=== PATIENT | female | born 1980 | race Caucasian/White ===

== ENCOUNTER 2019-10-21 20:10 | Emergency (ER) | payer SELFPAY ==
--- NOTE | 2019-10-21 20:55 | ED Physician Documentation ---
PD HPI ABD PAIN - Stated complaint Stated Complaint: ABD PX/VOM - Chief complaint Chief Complaint: Abd Pain - History obtained from History obtained from: Patient - History of Present Illness Timing - onset: Enter time (22:30), Last night Timing - details: Gradual onset Pain level now: 7 Quality: Sharp, Pain Location: RLQ Radiation: Other (none) Improved by: Laying still Worsened by: Moving, Palpation, Other (vomiting) Associated symptoms: Nausea, Vomiting. No: Fever, Diarrhea, Constipation Recently seen: Not recently seen - Additional information Additional information: c/o nausea, vomiting, and RLQ abdominal pain since last night, gradually worsening pain. Some similarity to symptoms previously attributed to her PCOS, but this is more persistent, sharp, and severe. Review of Systems Constitutional: denies: Fever, Chills, Sweats Cardiac: reports: Reviewed and negative Respiratory: reports: Reviewed and negative GI: reports: Abdominal Pain, Nausea, Vomiting. denies: Constipation, Diarrhea : denies: Dysuria, Frequency, Hematuria Musculoskeletal: reports: Reviewed and negative Neurologic: reports: Reviewed and negative PD PAST MEDICAL HISTORY - Past Medical History Past Medical History: Yes [employer]: Other (PCOS) - Present Medications Home Medications: Ambulatory Orders Medication Instructions Recorded Confirmed Metformin HCl 500 mg PO BID 10/21/19 10/21/19 Ondansetron Odt [Zofran] 4 mg TL Q6H PRN #10 tablet 10/21/19 - Allergies Allergies/Adverse Reactions: Allergies Allergy/AdvReac Type Severity Reaction Status Date / Time Iodinated Contrast Media Allergy Itching Verified 10/21/19 22:45 NSAIDS (Non-Steroidal Allergy Anaphylaxis Verified 10/21/19 20:21 Anti-Inflamma Penicillins Allergy Hives Verified 10/21/19 20:21 PD ED PE NORMAL - Vitals Vital signs reviewed: Yes - General General: Alert and oriented X 3, No acute distress, Well developed/nourished - Neck Neck: Supple, no meningeal sign - Cardiac Cardiac: RRR, No murmur - Respiratory Respiratory: No respiratory distress, Clear bilaterally - Abdomen Abdomen: Soft, Non distended - Back Back: No CVA TTP - Extremities Extremities: No edema PD ED PE EXPANDED - Abdomen Abdomen: Tender to palpation, RLQ Results - Vitals Vitals: Vital Signs - 24 hr 10/21/19 10/21/19 10/21/19 20:21 21:34 21:45 Temperature 37.0 C Heart Rate 96 83 86 Respiratory 14 136 H 16 Rate Blood Pressure 150/100 H 135/87 H 134/88 H O2 Saturation 99 97 97 10/21/19 10/21/19 10/21/19 22:12 22:32 23:03 Temperature Heart Rate 85 108 H 95 Respiratory 14 16 18 Rate Blood Pressure 130/80 158/105 H 136/106 H O2 Saturation 96 95 98 10/21/19 10/21/19 23:35 23:55 Temperature 36.5 C 36.6 C Heart Rate 90 110 H Respiratory 16 14 Rate Blood Pressure 136/89 H 121/92 H O2 Saturation 96 94 Oxygen O2 Source Room air - Labs Labs: Laboratory Tests 10/21/19 10/21/19 10/21/19 21:10 21:10 21:10 WBC 6.5 RBC 4.45 Hgb 12.3 Hct 37.8 MCV 84.9 MCH 27.6 MCHC 32.5 RDW 16.7 H Plt Count 348 MPV 9.8 Neut # (Auto) 3.6 Lymph # (Auto) 2.1 [place] # (Auto) 0.6 Eos # (Auto) 0.1 Baso # (Auto) 0.0 Absolute Nucleated RBC 0.00 Nucleated RBC % 0.0 Sodium 138 Potassium 3.8 Chloride 101 Carbon Dioxide 24 Anion Gap 13.0 BUN 12 Creatinine 0.8 Estimated GFR (MDRD) 81 L Glucose 163 H Calcium 9.5 Total Bilirubin < 0.2 L AST 34 ALT 47 Alkaline Phosphatase 66 Total Protein 7.8 Albumin 4.2 Globulin 3.6 Albumin/Globulin Ratio 1.2 Lipase 29 Urine Color YELLOW Urine Clarity CLEAR Urine pH 6.0 Ur Specific [place] <=1.005 Urine Protein NEGATIVE Urine Glucose (UA) NEGATIVE Urine Ketones NEGATIVE Urine Occult Blood NEGATIVE Urine Nitrite NEGATIVE Urine Bilirubin NEGATIVE Urine Urobilinogen 0.2 (NORMAL) Ur Leukocyte Esterase NEGATIVE Ur Microscopic Review NOT INDICATED Urine Culture Comments NOT INDICATED Urine HCG, Qual 10/21/19 21:10 WBC RBC Hgb Hct MCV MCH MCHC RDW Plt Count MPV Neut # (Auto) Lymph # (Auto) [place] # (Auto) Eos # (Auto) Baso # (Auto) Absolute Nucleated RBC Nucleated RBC % Sodium Potassium Chloride Carbon Dioxide Anion Gap BUN Creatinine Estimated GFR (MDRD) Glucose Calcium Total Bilirubin AST ALT Alkaline Phosphatase Total Protein Albumin Globulin Albumin/Globulin Ratio Lipase Urine Color Urine Clarity Urine pH Ur Specific [place] <=1.005 Urine Protein Urine Glucose (UA) Urine Ketones Urine Occult Blood Urine Nitrite Urine Bilirubin Urine Urobilinogen Ur Leukocyte Esterase Ur Microscopic Review Urine Culture Comments Urine HCG, Qual NEGATIVE - Rads (name of study) CT A/P Radiology: Prelim report reviewed, See rad report PD MEDICAL DECISION MAKING - ED course Complexity details: reviewed results, re-evaluated patient, considered differential, d/w patient ED course: On reevaluation, after tests resulted, patient reports adequate pain relief. Results d/w patient. She declines rx for pain medication, agrees w/ zofran rx. Departure - Departure Disposition: 01 Home, Self Care Clinical Impression: Abdominal pain Condition: Good Instructions: ED Abdominal Pain Unkn Cause, ED Pelvic Pain UKO Prescriptions: Ondansetron Odt [Zofran] 4 mg TL Q6H PRN #10 tablet PRN Reason: Nausea / Vomiting Discharge Date/Time: 10/21/19 23:55
[2019-10-21] MEDS ORDERED: ONDANSETRON 4 MG/2 ML VIAL ONE (21:06)
[2019-10-21] MEDS ORDERED: MORPHINE 2 MG/ML CARPUJECT IVP STA (21:16)
[2019-10-21] MEDS ORDERED: SODIUM CHLORIDE 0.9% 1,000 ML IV STA (21:17)
[2019-10-21 21:23] LABS: BASOPHILS % (AUTO) 0.5 %; BILIRUBIN,URINE NEGATIVE (NEGATIVE); EOSINOPHILS # (AUTO) 0.1 10^3/uL (0.0-0.7); EOSINOPHILS % (AUTO) 1.4 %; GLUCOSE, URINE (UA) NEGATIVE (NEGATIVE); HGB - HEMOGLOBIN 12.3 g/dL (12.0-16.0); KETONES,URINE (UA) NEGATIVE (NEGATIVE); LEUKOCYTE ESTERASE, URINE NEGATIVE (NEGATIVE); LYMPHOCYTES # (AUTO) 2.1 10^3/uL (1.5-3.5); LYMPHOCYTES % (AUTO) 32.7 %; MEAN CORPUSCULAR HEMOGLOBIN 27.6 pg (27.0-31.0); MEAN CORPUSCULAR HGB CONC 32.5 g/dL (32.0-36.0); MEAN CORPUSCULAR VOLUME 84.9 fL (81.0-99.0); MEAN PLATELET VOLUME 9.8 fL (7.9-10.8); MONOCYTES # (AUTO) 0.6 10^3/uL (0.0-1.0); MONOCYTES % (AUTO) 9.5 %; NEUTROPHILS # (AUTO) 3.6 10^3/uL (1.5-6.6); NEUTROPHILS % (AUTO) 55.6 %; NITRITE,URINE NEGATIVE (NEGATIVE); OCCULT BLOOD,URINE NEGATIVE (NEGATIVE); PLT - PLATELET COUNT 348 10^3/uL (130-450); PROTEIN,URINE NEGATIVE (NEGATIVE); RED BLOOD COUNT 4.45 10^6/uL (4.20-5.40); RED CELL DISTRIBUTION WIDTH 16.7 % (12.0-15.0); UROBILINOGEN,URINE 0.2 (NORMAL) E.U./dL (NORMAL); WHITE BLOOD COUNT 6.5 x10^3/uL (4.8-10.8)
[2019-10-21] MEDS ORDERED: ONDANSETRON 4 MG/2 ML VIAL IVP STA (21:23)
[2019-10-21 21:25] LABS: CLARITY,URINE CLEAR (CLEAR); HCG UR QUAL NEGATIVE
[2019-10-21 21:35] LABS: ALBUMIN 4.2 g/dL (3.2-5.5); ALBUMIN/GLOBULIN RATIO 1.2 (1.0-2.2); ALKALINE PHOSPHATASE 66 IU/L (42-121); ALT ALANINE AMINOTRANSFERASE 47 IU/L (10-60); AST ASPARTATE AMINOTRANSFERASE 34 IU/L (10-42); BILIRUBIN,TOTAL < 0.2 mg/dL (0.2-1.0); BUN - BLOOD UREA NITROGEN 12 mg/dL (6-20); CALCIUM 9.5 mg/dL (8.5-10.3); CARBON DIOXIDE - CO2 24 mmol/L (21-32); CHLORIDE 101 mmol/L (101-111); CREATININE 0.8 mg/dL (0.4-1.0); GLUCOSE 163 mg/dL (70-100); LIPASE 29 U/L (22-51); SODIUM 138 mmol/L (135-145); TOTAL PROTEIN 7.8 g/dL (6.7-8.2)
[2019-10-21] MEDS ORDERED: HYDROmorphone 1 MG/ML CARPUJECT IVP STA ×2 (21:47→23:03)
[2019-10-21] MEDS ORDERED: IOVERSOL 320 100 ML VIAL IVP ONE ×2 (22:11→22:49)
[2019-10-21] MEDS ORDERED: diphenhydrAMINE 25 MG CAPSULE PO STA (22:39)
--- NOTE | 2019-10-21 23:28 | CT Report ---
Reason: RLQ pain Procedure Date: 10/21/2019 Accession Number: [id number] / [id number] Procedure: CT - Abdomen/Pelvis W CPT Code: Final Report FULL RESULT: EXAM: CT ABDOMEN AND PELVIS EXAM DATE:10/21/2019 10:36 PM CLINICAL HISTORY: Right lower quadrant pain. COMPARISONS: None. TECHNIQUE: Routine helical CT imaging was performed through the abdomen and pelvis with 100 mL OPTIRAY 320 IV contrast. Oral contrast: No. Reconstructions: Coronal and sagittal. In accordance with CT protocol optimization, one or more of the following dose reduction techniques were utilized for this exam: automated exposure control, adjustment of mA and/or KV based on patient size, or use of iterative reconstruction technique. FINDINGS: Lung Bases: Clear lung bases. No pleural effusion. Liver: The liver is globally enlarged with the longitudinal dimension of the right lobe measuring 19.8 cm. Gallbladder/Bile Ducts: Unremarkable. Spleen: Unremarkable. Pancreas: Unremarkable. Adrenal Glands: Unremarkable. Kidneys: Unremarkable. No hydronephrosis. Peritoneal Cavity/Bowel: Colonic diverticula. Otherwise, the bowel is normal in caliber and contour. No free fluid, free air or lymphadenopathy. Status post appendectomy. Pelvic Organs: Unremarkable. The bladder and visualized pelvic organs appear normal. Vasculature: Unremarkable. Bones: Unremarkable. Other: None. IMPRESSION: 1. No acute process seen in the abdomen or pelvis. 2. Clonic diverticulosis. 3. Hepatomegaly. RADIA
[2019-10-21 23:56] VITALS: BP 121/92
== END 2019-10-21 23:55 | disposition home or self-care (01) ==
LOC: ED 20:10
DX: R10.31 Right lower quadrant pain (principal)
CPT/HCPCS: 36415; 74177; 80053; 81003; 81025; 83690; 85025; 96361; 96374; 96375; 96376; 99284; A9270; J1170; Q9967; 81001; 87086